=== PATIENT | female | born 1945 | race Caucasian/White ===

== ENCOUNTER 2017-12-06 08:06 | Outpatient (CLI) | payer OTHER | END 2017-12-06 08:07 | disposition home or self-care (01) | LOC: BICMAMMO 08:06 | PROVIDERS: ATTEND Family Medicine | DX: Z12.31 Encounter for screening mammogram for malignant neoplasm of breast (principal); Z80.3 Family history of malignant neoplasm of breast | CPT/HCPCS: 77063; 77067 ==

== ENCOUNTER 2018-09-19 11:59 | Outpatient (CLI) | payer MEDICARE ==
[2018-09-19] MEDS ORDERED: Iopamidol 370 76% 100 ML VIAL ONE (13:16)
--- NOTE | 2018-09-19 15:26 | CT ---
CT CHEST WITH CONTRAST: HISTORY: Mycobacterium avium complex. Previous infiltrate seen on CT at the [facility]. COMPARISON: 11/22/2017 TECHNIQUE: Multiple contiguous axial images were obtained through the chest with contrast. Sagittal and coronal reformats were performed. FINDINGS: The previously seen infiltrates in the lungs have completely resolved. There is a calcified granulom a in the right middle lobe. There is a stable 3 to 4 mm nodule on image 42 of 108, in the lingula. No other pulmonary nodules are seen. No pneumothorax or pleural effusion is present. The heart is normal in size without focal cardiac abnormality. No hilar or mediastinal lymphadenopat hy is seen. The visualized subdiaphragmatic structures and chest wall soft tissues are unremarkable. Mild degene rative changes are seen in the spine. IMPRESSION: 1. Small incidentally seen left pulmonary nodule. 2. Resolution of previously seen multifocal infiltrates. POS: [facility]
== END 2018-09-19 12:00 | disposition home or self-care (01) ==
LOC: BICCT 11:59
PROVIDERS: ATTEND Family Medicine
DX: A31.0 Pulmonary mycobacterial infection (principal); R91.8 Other nonspecific abnormal finding of lung field
CPT/HCPCS: 71260; 82565

== ENCOUNTER 2018-12-10 09:12 | Outpatient (CLI) | payer MEDICARE ==
--- NOTE | 2018-12-12 18:25 | MMO ---
Bilateral MAMMO Bilat Screen [facility]. CLINICAL HISTORY: Patient is 73 years old and is seen for screening. The patient has the following family history of breast cancer: maternal grandmother, at age 70. The patient has a history of other cancer. VIEWS: The views performed were: bilateral craniocaudal with tomosynthesis and bilateral mediolateral oblique with tomosynthesis. FILMS COMPARED: The present examination has been compared to prior imaging studies performed at [facility] on 03/02/2010, 03/15/2011, 03/19/2012, 03/20/2013, 03/21/2014, 03/23/2015, 12/04/2015, 12/05/2016 and 12/06/2017, and at [facility] on 10/04/2006, 10/04/2007 and 09/30/2008. MAMMOGRAM FINDINGS: The breasts are heterogeneously dense, which could obscure a lesion on mammography. There are stable benign appearing calcifications seen in the right breast. There are no suspicious masses, calcifications or areas of architectural distortion. There are no suspicious masses, suspicious calcifications, or new areas of architectural distortion. IMPRESSION: THERE IS NO MAMMOGRAPHIC EVIDENCE OF MALIGNANCY. A ROUTINE FOLLOW-UP MAMMOGRAM IN 1 YEAR IS RECOMMENDED. THE RESULTS OF THIS EXAM WERE SENT TO THE PATIENT. ACR BI-RADS Category 2 - Benign finding MAMMOGRAPHY NOTE: 1. A negative mammogram report should not delay a biopsy if a dominant of clinically suspicious mass is present. 2. Approximately 10% to 15% of breast cancers are not detected by mammography. 3. Adenosis and dense breasts may obscure an underlying neoplasm.
== END 2018-12-10 09:13 | disposition home or self-care (01) ==
LOC: BICMAMMO 09:12
PROVIDERS: ATTEND Family Medicine
DX: Z12.31 Encounter for screening mammogram for malignant neoplasm of breast (principal); Z85.89 Personal history of malignant neoplasm of other organs and systems; Z80.3 Family history of malignant neoplasm of breast
CPT/HCPCS: 77063; 77067

== ENCOUNTER 2018-12-17 08:09 | Outpatient (CLI) | payer MEDICARE ==
--- NOTE | 2018-12-17 09:16 | BD ---
DEXA BONE DENSITY STUDY: HISTORY: Postmenopausal. 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 Of note, the L1 vertebral body me asurements do fall in the osteoporosis range. POS: [facility]
== END 2018-12-17 08:10 | disposition home or self-care (01) ==
LOC: BICMAMMO 08:09
PROVIDERS: ATTEND Internal Medicine Rheumatology
DX: M81.0 Age-related osteoporosis without current pathological fracture (principal); M85.88 Other specified disorders of bone density and structure, other site
CPT/HCPCS: 77080

== ENCOUNTER 2019-05-28 08:24 | Outpatient (CLI) | payer MEDICARE ==
--- NOTE | 2019-05-28 09:33 | RAD ---
CHEST TWO VIEWS: HISTORY: Dyspnea. COMPARISON: CT chest from 09/19/2018. Previous chest x-ray from 02/20/2014. FINDINGS: The lungs are well aerated. No infiltrate or effusion seen. There is a nodular opacity overlying th e left upper lung. This overlies the anterior left 2nd rib and may be related to this rib; however, underlying nodule cannot be excluded. Heart and mediastinum are unremarkable. There is a mildly displaced fracture involving the posterior right 7th rib, which is a new finding. This fracture is slightly displaced and is of indeterminate age. The thoracic vertebrae maintain height and alignment. IMPRESSION: 1. Question new nodule in the left upper lung field. 2. A new mildly displaced fracture posterior right 7th rib is noted. Recommend repeat chest PA exam or consider further evaluation with chest CT. CODE T POS: OFF
== END 2019-05-28 08:25 | disposition home or self-care (01) ==
LOC: RAD 08:24
PROVIDERS: ATTEND Internal Medicine Critical Care Medicine
DX: R06.00 Dyspnea, unspecified (principal); S22.32XA Fracture of one rib, left side, initial encounter for closed fracture
CPT/HCPCS: 71046

== ENCOUNTER 2019-06-13 09:53 | Outpatient (CLI) | payer MEDICARE ==
--- NOTE | 2019-06-13 10:10 | RAD ---
EXAM: XR Thoracic Spine 3 V STANDARD PROVIDED CLINICAL HISTORY: Pain in thoracic spine for a couple of weeks. Pain is now worse. COMPARISON: Lateral views of the chest on 02/20/2014 and study on 05/28/2019. FINDINGS: There is slight height loss involving the superior endplate of the T9 vertebral body, but this is a s table finding compared to prior studies. The vertebral body heights are otherwise within normal limits. No additional fracture or subluxation is seen involving the thoracic spine. There is slight l eft convex curvature of the thoracolumbar spine. Mild degenerative changes are seen in the spine. Vascular calcifications are seen in the thoracic aorta. IMPRESSION: 1. Stable mild compression deformity of the T9 vertebral body. There is otherwise no evidence of a fr acture or subluxation involving the thoracic spine. 2. Degenerative changes in the thoracic as well as limited visualized upper lumbar spine.
== END 2019-06-13 09:54 | disposition home or self-care (01) ==
LOC: BICRAD 09:53
PROVIDERS: ATTEND Internal Medicine Rheumatology
DX: M54.6 Pain in thoracic spine (principal); M43.9 Deforming dorsopathy, unspecified; M47.814 Spondylosis without myelopathy or radiculopathy, thoracic region
CPT/HCPCS: 72072

== ENCOUNTER 2019-06-27 07:46 | Outpatient (CLI) | payer MEDICARE ==
--- NOTE | 2019-06-27 08:38 | CT ---
EXAM: CT of the chest without contrast HISTORY: Pulmonary nodule COMPARISON: 09/19/2018 TECHNIQUE: Multiple contiguous axial images were obtained in a CT the chest without contrast. Coronal and sagittal reformats were performed. FINDINGS: HEART: Normal in size without focal cardiac abnormality. Atherosclerotic calcifications in the aorta. MEDIASTINUM: No hilar or mediastinal lymphadenopathy. Evaluation of the mediastinum is limited withou t IV contrast. LUNGS: There is a stable 3 mm nodular opacity in the lingula on image 25 of 65. A calcified granuloma seen in the right middle lobe. No other pulmonary nodules are seen. PLEURAL SPACE: No pneumothorax or pleural effusion. CHEST WALL SOFT TISSUES: Unremarkable OSSEOUS STRUCTURES: Degenerative changes in the spine. VISUALIZED SUBDIAPHRAGMATIC STRUCTURES: Unremarkable IMPRESSION: Stable pulmonary nodules. The largest noncalcified nodule measures only 3 mm in size. No further foll ow-up is necessary of this noncalcified nodule.
== END 2019-06-27 07:47 | disposition home or self-care (01) ==
LOC: CT 07:46
PROVIDERS: ATTEND Internal Medicine Critical Care Medicine
DX: S22.39XA Fracture of one rib, unspecified side, initial encounter for closed fracture (principal); R91.8 Other nonspecific abnormal finding of lung field
CPT/HCPCS: 71250

== ENCOUNTER 2019-08-03 14:21 | Emergency (ER) | payer MEDICARE ==
[~2019-08-03 14:21] MED LIST: Iopamidol-370 76% 500 ML 1 ML ONE
[2019-08-03 16:52] LABS: #Basophils 0.1 thou/uL (0.0-0.2); #Eosinphils 0.1 thou/uL (0.0-0.7); #Lymphocytes 2.3 thou/uL (1.20-3.40); #Monocytes 0.8 thou/uL (0.11-0.59); #Neutrophils 3.6 thou/uL (1.40-6.50); %Eosinophils 1.5 % (0.0-10.0); %Lymphocytes 33.1 % (21.0-51.0); %Neutrophils 53.4 % (42.0-75.0); Hemoglobin 11.5 g/dL (12.0-16.0); Mean Corpuscular HGB CONC 34.3 g/dL (32.0-36.0); Mean Corpuscular Hemoglobin 32.9 pg (27.0-31.0); Mean Corpuscular Volume 95.7 fL (78.0-98.0); Mean Platelet Volume 8.8 fL (7.4-10.4); Platelet Count 207 thou/uL (130-400); RBC Distribution Width 11.9 % (11.5-14.5); White Blood Cell (WBC) Count 6.8 thou/uL (4.8-10.8)
[2019-08-03 17:01] LABS: INR-International Normal Ratio 1.1; PTT 31.3 SEC (22.9-36.1); Prothrombin Time 13.7 SEC (12.0-14.7)
[2019-08-03 17:24] LABS: ALT (SGPT) 33 U/L (8-55); AST (SGOT) 45 U/L (5-34); Albumin 4.2 g/dL (3.4-4.8); Alkaline Phosphatase 70 U/L (40-110); Anion Gap 15 mmol/L (10-20); BUN (Urea Nitrogen) 18 mg/dL (9.8-20.1); Bilirubin, Total 0.4 mg/dL (0.2-1.2); Calc. Creatinine Clearance 0 mL/min (70-130); Calcium 9.6 mg/dL (7.8-10.44); Carbon Dioxide 23 mmol/L (23-31); Chloride 100 mmol/L (98-107); Estimated GFR-MDRD 58; Globulin 3.5 g/dL (2.4-3.5); Glucose 95 mg/dL (83-110); Potassium 4.6 mmol/L (3.5-5.1); Protein, Total 7.7 g/dL (6.0-8.3); Sodium 133 mmol/L (136-145)
--- NOTE | 2019-08-03 18:16 | CT ---
CTA Angio Chest W WO Con History: Back hematoma. Comparison: CT chest June 20, 2019 Findings: CT angiogram chest performed after the intravenous administration of contrast. 3-D renderin g provided. No pulmonary embolism. Enlarging soft tissue mass which may reflect a hematoma between the right rhom boid muscle and the latissimus with lateral displacement of the scapula. Overall this collection measures approximately 7 cm in AP dimension by transverse width of 3.1 cm in craniocaudal dimension o f 12 cm. Punctate calcification at the inferior margin of this collection. There is adjacent nonhealing right posterior lateral seventh rib fracture. No acute displaced rib fracture is appreciat ed. No acute thoracic spine fracture. T9 superior endplate fracture is not acute. Mild atelectasis in the lung bases. No pneumothorax. No effusion. Limited evaluation of the upper abdomen is unremarkable. Impression: Enlarging soft tissue density mass between the right rhomboid and latissimus muscle with imaging appearance of a hematoma especially given the adjacent nonhealing right-sided rib fracture.
== END 2019-08-03 19:00 | disposition home or self-care (01) ==
LOC: ERS 14:21
DX: M79.81 Nontraumatic hematoma of soft tissue (principal); S22.31XG Fracture of one rib, right side, subsequent encounter for fracture with delayed healing; I10 Essential (primary) hypertension; M06.9 Rheumatoid arthritis, unspecified; Z79.899 Other long term (current) drug therapy; X58.XXXD Exposure to other specified factors, subsequent encounter
CPT/HCPCS: 71275; 80053; 84484; 85025; 85610; 85730; 93005; 94760; Q9967

== ENCOUNTER 2020-01-07 09:41 | Outpatient (CLI) | payer MEDICARE ==
--- NOTE | 2020-01-07 11:01 | BD ---
DEXA BONE MINERAL DENSITY STUDY: HISTORY: Age-related osteoporosis without current pathologic fracture. COMPARISON: DEXA exam from 2019. FINDINGS: Lumbar Spine: BMD (g/cm2) L1 0.702 T-Score: -2.6 -0.4 L2 0.806 T-Score: -2.0 0.5 L3 0.816 T-Score: -2.4 0.2 L4 0.872 T-Score: -1.7 1.0 L1-L4 0.807 T-Score: -2.2 0.3 Right: Femoral Neck: 0.532 T-Score: -2.8 0.7 Total Femur: 0.676 T-Score: -2.2 -0.3 WHO Classification: Osteoporosis. TEN-YEAR FRACTURE RISK: Major osteoporotic fracture: 31%. Hip fracture: 12%. Impression: Osteoporosis with fracture risk as above. POS: [facility]
--- NOTE | 2020-01-07 13:43 | MMO ---
Bilateral MAMMO Bilat Screen [facility]. CLINICAL HISTORY: Patient is 74 years old and is seen for screening. The patient has the following family history of breast cancer: maternal grandmother, at age 70. The patient has a history of other cancer. VIEWS: The views performed were: bilateral craniocaudal with tomosynthesis and bilateral mediolateral oblique with tomosynthesis. FILMS COMPARED: The present examination has been compared to prior imaging studies performed at [facility] on 12/05/2016, 12/06/2017 and 12/10/2018. This study has been interpreted with the assistance of computer-aided detection. MAMMOGRAM FINDINGS: The breasts are heterogeneously dense, which could obscure a lesion on mammography. Benign calcifications are noted bilaterally. There are no suspicious masses, suspicious calcifications, or new areas of architectural distortion. IMPRESSION: THERE IS NO MAMMOGRAPHIC EVIDENCE OF MALIGNANCY. A ROUTINE FOLLOW-UP MAMMOGRAM IN 1 YEAR IS RECOMMENDED. THE RESULTS OF THIS EXAM WERE SENT TO THE PATIENT. ACR BI-RADS Category 2 - Benign finding MAMMOGRAPHY NOTE: 1. A negative mammogram report should not delay a biopsy if a dominant of clinically suspicious mass is present. 2. Approximately 10% to 15% of breast cancers are not detected by mammography. 3. Adenosis and dense breasts may obscure an underlying neoplasm. Reported by: FELECIA BEATTY MD Electonically Signed: [id number]
== END 2020-01-07 09:42 | disposition home or self-care (01) ==
LOC: BICMAMMO 09:41
PROVIDERS: ATTEND Internal Medicine Rheumatology
DX: Z12.31 Encounter for screening mammogram for malignant neoplasm of breast (principal); M81.0 Age-related osteoporosis without current pathological fracture; Z80.3 Family history of malignant neoplasm of breast; Z85.89 Personal history of malignant neoplasm of other organs and systems
CPT/HCPCS: 77063; 77067; 77080

== ENCOUNTER 2020-12-15 08:58 | Outpatient (CLI) | payer MEDICARE | END 2020-12-15 08:59 | disposition home or self-care (01) | LOC: BICRAD 08:58 | PROVIDERS: ATTEND Internal Medicine Critical Care Medicine | DX: R06.00 Dyspnea, unspecified (principal); I70.0 Atherosclerosis of aorta; R91.8 Other nonspecific abnormal finding of lung field | CPT/HCPCS: 71046 ==

== ENCOUNTER 2021-07-07 08:54 | Outpatient (CLI) | payer MEDICARE | END 2021-07-07 08:55 | disposition home or self-care (01) | LOC: BICRAD 08:54 | PROVIDERS: ATTEND Internal Medicine Gastroenterology | DX: R10.33 Periumbilical pain (principal); R11.2 Nausea with vomiting, unspecified | CPT/HCPCS: 74019 ==

== ENCOUNTER 2021-08-11 07:36 | Outpatient (CLI) | payer MEDICARE ==
[2021-08-11] MEDS ORDERED: Iopamidol 370 76% 50 ML VIAL FS ONE (09:23)
[2021-08-11] MEDS ORDERED: Iopamidol 370 76% 100 ML VIAL ONE (09:23)
== END 2021-08-11 07:37 | disposition home or self-care (01) ==
LOC: CT 07:36
PROVIDERS: ATTEND Physician Assistant Medical
DX: R10.33 Periumbilical pain (principal); R11.2 Nausea with vomiting, unspecified; R10.13 Epigastric pain; R19.4 Change in bowel habit
CPT/HCPCS: 74177; 82565; Q9967

== ENCOUNTER 2021-10-11 10:22 | Outpatient (CLI) | payer MEDICARE | END 2021-10-11 10:23 | disposition home or self-care (01) | LOC: NM 10:22 | PROVIDERS: ATTEND Specialist | DX: R19.01 Right upper quadrant abdominal swelling, mass and lump (principal); R11.2 Nausea with vomiting, unspecified | CPT/HCPCS: 78227; A9537 ==

== ENCOUNTER 2022-03-25 08:07 | Outpatient (CLI) | payer MEDICARE | END 2022-03-25 08:08 | disposition home or self-care (01) | LOC: BICMAMMO 08:07 | PROVIDERS: ATTEND Internal Medicine Rheumatology | DX: M81.0 Age-related osteoporosis without current pathological fracture (principal) | CPT/HCPCS: 77080 ==

== ENCOUNTER 2024-02-09 10:39 | Outpatient (CLI) | payer MEDICARE | END 2024-02-09 10:40 | disposition home or self-care (01) | LOC: BICMAMMO 10:39 | PROVIDERS: ATTEND Internal Medicine Rheumatology | DX: M81.0 Age-related osteoporosis without current pathological fracture (principal) | CPT/HCPCS: 77080 ==